=== PATIENT | male | born 1980 | race American Indian/Alaskan Native ===

== ENCOUNTER → 2025-01-01 10:23 | Outpatient (CLI) | payer OTHER, SELFPAY ==
--- NOTE | 2025-01-01 10:26 | DI.NM.S_ITS ---
PROCEDURE: NM EXERCISE TREADMILL NON NUC COMPARISON: None. INDICATIONS: essential hypertension FINDINGS: Patient exercised per the standard Jesse protocol. Total exercise time was 9 minutes and 30 seconds. Test was terminated secondary to fatigue. Maximum heart rate attained was 159 bpm which is 91% of max predicted heart rate. Maximum blood pressure was 180/100[place] [address]. PERLA +6%. 10.1 METS. No ischemic changes noted. No arrhythmias present. Normal heart rate and blood pressure response to exercise noted. 4-5 out of 10 chest pain voiced during peak exercise. This chest pain resolved in recovery. IMPRESSION: 1. Equivocal exercise treadmill stress test for ischemia due to exercise- induced induced chest pain without concurrent ischemic changes. 2. Slightly reduced exercise tolerance. Dictated by: Marques Wilburn M.D. on 01/01/2025 at 17:08 Approved by: Marques Wilburn M.D. on 01/01/2025 at 17:11
== END ==
LOC: NUCM 10:25
PROVIDERS: PCP Family Medicine; Referring Provider Family Medicine; Visit Provider Family Medicine
DX: I10 Essential (primary) hypertension (principal); E66.812 Obesity, class 2
CPT/HCPCS: 93017